=== PATIENT | male | born 1955 | race Asian ===

== ENCOUNTER 2020-05-17 18:03 | Emergency (ER) | payer MEDICARE, OTHER ==
[~2020-05-17] VITALS: Ht 172.7 cm; Wt 81.6 kg
[2020-05-17] MEDS ORDERED: Cefepime HCl 1 GM in D5W 55 ML IVPB ONE (18:30)
[2020-05-17] MEDS ORDERED: Acetaminophen 650 MG SUPP RECTAL ONE (18:30)
[2020-05-17 18:36] LABS: BASOPHILS % (AUTO) 1.4 % (0.0-2.0); HEMATOCRIT 42.3 % (42.0-52.0); HEMOGLOBIN 13.5 G/DL (14.2-18.0); LYMPHOCYTES % (AUTO) 6.3 % (20.0-45.0); MEAN CORPUSCULAR VOLUME 101 FL (80-99); MONOCYTES % (AUTO) 10.2 % (1.0-10.0); NEUTROPHILS % (AUTO) 76.1 % (45.0-75.0); PLATELET COUNT 124 K/UL (150-450); RED BLOOD COUNT 4.17 M/UL (4.70-6.10); WHITE BLOOD COUNT 13.4 K/UL (4.8-10.8)
[2020-05-17 18:45] VITALS: BP 117/51
[2020-05-17 18:48] LABS: INR 1.1 (0.9-1.1)
[2020-05-17] MEDS ORDERED: MULTIVITAMINS1 EAC8 ORAL (18:56)
[2020-05-17] MEDS ORDERED: MAGNESIUM OXID240 MG PO (18:56)
[2020-05-17] MEDS ORDERED: DIGITEK125 MCG PO (18:56)
[2020-05-17] MEDS ORDERED: CRESTOR10 M2 ORAL (18:56)
[2020-05-17] MEDS ORDERED: HYDROCORTISONE20 MG PO (18:56)
[2020-05-17] MEDS ORDERED: VITAMIN C500 M1 ORAL (18:56)
[2020-05-17] MEDS ORDERED: HEPARIN SO5000 UNIT2 SUBQ (18:56)
[2020-05-17] MEDS ORDERED: SYNTHROID25 MCG ORAL (18:56)
[2020-05-17] MEDS ORDERED: POTASSIUM CHLO20 ME1 ORAL (18:56)
[2020-05-17] MEDS ORDERED: ALLOPURINOL100 M1 ORAL (18:56)
[2020-05-17] MEDS ORDERED: ASPIRIN300 MG PO (18:56)
[2020-05-17] MEDS ORDERED: DOCUSATE SODIU100 MG ORAL (18:56)
[2020-05-17] MEDS ORDERED: FLUDROCORTISON0.1 MG PO (18:56)
[2020-05-17] MEDS ORDERED: MIDODRINE HCL10 MG ORAL (18:56)
[2020-05-17] MEDS ORDERED: METOPROLOL SUCC25 MG ORAL (18:56)
[2020-05-17] MEDS ORDERED: VITAMIN D325 MC1 PO (18:56)
[2020-05-17] MEDS ORDERED: ALBUTEROL SULF8.5 G1 INH (18:56)
--- NOTE | 2020-05-17 18:56 | Diagnostic Imaging Report ---
EXAM: XR Chest, 1 View CLINICAL HISTORY: ALOC TECHNIQUE: Frontal view of the chest. COMPARISON: No relevant prior studies available. FINDINGS: Lungs: Low lung volumes with bronchovascular crowding. Linear interstitial prominence could represent interstitial pulmonary edema, atypical infection, or could be due to low lung volumes. Pleural space: Possible tiny left pleural effusion. No pneumothorax. Heart: Cardiomegaly. Mediastinum: Unremarkable. Bones/joints: No acute abnormality Soft tissues: Left axillary surgical clips. IMPRESSION: 1. Low lung volumes with bronchovascular crowding. 2. Linear interstitial prominence could represent interstitial pulmonary edema, atypical infection, or could be due to low lung volumes. 3. Cardiomegaly. 4. Possible tiny left pleural effusion. 5. Left axillary surgical clips. 6. If there is further concern, recommend CT.
[2020-05-17 18:58] LABS: ANION GAP 8 mmol/L (5-15); BLOOD UREA NITROGEN 27 mg/dL (7-18); CARBON DIOXIDE 26 MMOL/L (21-32); CHLORIDE 103 MMOL/L (98-107); CREATININE 1.7 MG/DL (0.55-1.30); POTASSIUM 4.4 MMOL/L (3.5-5.1); SODIUM 137 MMOL/L (136-145)
--- NOTE | 2020-05-17 18:58 | Emergency Room Report ---
History of Present Illness General Chief Complaint: Altered Mental Status Source: Patient, Medical Record, EMS Present Illness HPI Patient brought in by EMS. Apparently has been altered this afternoon. Patient does complain about mild cough but he says that that is chronic. He also complains about total body pain at this time. He states this is his usual although he usually takes [place] [facility]. He denies nausea, vomiting or diarrhea. He states he does not have any dysuria at this time. Patient is a fairly poor historian. Patient is status post stroke. Review of medical records reveals suggesting off hemodialysis in the past. 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 There is also history of asthma and respiratory failure. In addition the patient has had atrial fibrillation and congestive heart failure with pleural effusions. History of gout. 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 Patient History Limited by: medical condition Past Medical History: see triage record, old chart reviewed - papers with patient Social History: Denies: smoking Social History Narrative prison facility Reviewed Nursing Documentation: PMH: Agreed; PSxH: Agreed Nursing Documentation-PMH Past Medical History: No History, Except For Hx Cardiac Problems: Yes - chf, cardiomyopathy, hepatic failure, pleural effusion, a fib, Review of Systems All Other Systems: limited Physical Exam Vital Signs Date Time Temp Pulse Resp B/P (MAP) Pulse Ox O2 Delivery O2 Flow Rate FiO2 05/17/20 18:05 101.5 68 19 112/48 (69) 99 Room Air Sp02 EP Interpretation: reviewed, normal General Appearance: no apparent distress, Chronically Ill Head: normocephalic, atraumatic Eyes: bilateral eye normal inspection, bilateral eye PERRL, bilateral eye EOMI ENT: moist mucus membranes Neck: full range of motion, supple Respiratory: decreased breath sounds Cardiovascular #1: regular rate, rhythm, edema - Trace bilaterally Cardiovascular #2: 2+ radial (L) Gastrointestinal: non tender, soft, decreased bowel sounds Genitourinary: normal inspection Musculoskeletal: back normal, other - Contractures left hand 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, 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 III-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 nml as tested, sensory intact, motor weakness - Left-sided, other - Slow speaking Psychiatric: depressed affect Skin: Decubitus/Ulcer - sacral Stage 2, warm/dry Medical Decision Making Diagnostic Impression: Primary Impression: Sepsis Qualified Codes: A41.9 - Sepsis, unspecified organism; R65.20 - Severe sepsis without septic shock; G93.40 - Encephalopathy, unspecified Additional Impressions: Pneumonia Qualified Codes: J18.9 - Pneumonia, unspecified organism COVID-19 UTI (urinary tract infection) Qualified Codes: N39.0 - Urinary tract infection, site not specified Renal insufficiency ER Course Patient presents with altered level of consciousness and febrile. Differential includes pneumonia, sepsis, Covid, acute myocardial infarction amongst others. High suspicion of sepsis and initial fluid bolus ordered. With a cough pneumonia highly suspected. Patient placed on a nuclear monitoring technician. Tylenol administered also. The patient is a poor historian with a very complicated past medical history and extremely complex. There is no evidence of current hemodialysis. Called with elevated lactate. Bolus and antibiotics already ordered. VS stable. Patient mentating better and answering questions. Sepsis re-evaluation 1906 EKG without injury. Chest x-ray bilateral infiltrates and cardiomegaly. Labs with elevated white count. CMP with renal insufficiency and slightly elevated blood glucose. Urinalysis with too numerous to count white cells. Called COVID +. Dexamethasone added. Repeat Lactate normal. Discussed with Dr. Freeman who feels the patient is stable for transfer as I do. Patient mentation has improved. Laboratory Tests Test 05/17/20 18:15 05/17/20 18:52 05/17/20 19:15 White Blood Count 13.4 K/UL (4.8-10.8) H Red Blood Count 4.17 M/UL (4.70-6.10) L Hemoglobin 13.5 G/DL (14.2-18.0) L Hematocrit 42.3 % (42.0-52.0) Mean Corpuscular Volume 101 FL (80-99) H Mean Corpuscular Hemoglobin 32.4 PG (27.0-31.0) H Mean Corpuscular Hemoglobin Concent 32.0 G/DL (32.0-36.0) Red Cell Distribution Width 15.0 % (11.6-14.8) H Platelet Count 124 K/UL (150-450) L Mean Platelet Volume 10.8 FL (6.5-10.1) H Neutrophils (%) (Auto) 76.1 % (45.0-75.0) H Lymphocytes (%) (Auto) 6.3 % (20.0-45.0) L Monocytes (%) (Auto) 10.2 % (1.0-10.0) H Eosinophils (%) (Auto) 6.0 % (0.0-3.0) H Basophils (%) (Auto) 1.4 % (0.0-2.0) Prothrombin Time 12.0 SEC (9.30-11.50) H Prothrombin Time INR 1.1 (0.9-1.1) Activated Partial Thromboplast Time 34 SEC (23-33) H Sodium Level 137 MMOL/L (136-145) Potassium Level 4.4 MMOL/L (3.5-5.1) Chloride Level 103 MMOL/L (98-107) Carbon Dioxide Level 26 MMOL/L (21-32) Anion Gap 8 mmol/L (5-15) Blood Urea Nitrogen 27 mg/dL (7-18) H Creatinine 1.7 MG/DL (0.55-1.30) H Estimated Glomerular Filtration Rate 41.0 mL/min (>60) Glucose Level 169 MG/DL (74-106) H Lactic Acid Level 2.60 mmol/L (0.4-2.0) H 1.60 mmol/L (0.66-2.22) Calcium Level 9.0 MG/DL (8.5-10.1) Magnesium Level 1.9 MG/DL (1.8-2.4) Ferritin 150 NG/ML (8-388) Total Bilirubin 1.0 MG/DL (0.2-1.0) Aspartate Amino Transferase (AST) 30 U/L (15-37) Alanine Aminotransferase (ALT) 20 U/L (12-78) Alkaline Phosphatase 153 U/L (46-116) H Lactate Dehydrogenase 207 U/L (81-234) Total Creatine Kinase 153 U/L (26-308) Troponin I 0.023 ng/mL (0.000-0.056) C-Reactive Protein, Quantitative 17.9 mg/dL (0.00-0.90) H Pro-B-Type Natriuretic Peptide 8788 pg/mL (0-125) H Total Protein 7.1 G/DL (6.4-8.2) Albumin 2.7 G/DL (3.4-5.0) L Globulin 4.4 g/dL Albumin/Globulin Ratio 0.6 (1.0-2.7) L Lipase 56 U/L (73-393) L Urine Color Yellow Urine Appearance Very cloudy Urine pH 5 (4.5-8.0) Urine Specific Anna 1.010 (1.005-1.035) Urine Protein 3+ (NEGATIVE) H Urine Glucose (UA) Negative (NEGATIVE) Urine Ketones Negative (NEGATIVE) Urine Blood 5+ (NEGATIVE) H Urine Nitrite Negative (NEGATIVE) Urine Bilirubin Negative (NEGATIVE) Urine Urobilinogen Normal MG/DL (0.0-1.0) Urine Leukocyte Esterase 3+ (NEGATIVE) H Urine RBC Tntc /HPF (0 - 0) H Urine WBC Tntc /HPF (0 - 0) H Urine Squamous Epithelial Cells Occasional /LPF Urine Bacteria Moderate /HPF (NONE) H Microbiology Date/Time Source Procedure Growth Status 05/17/20 18:38 Nasopharynx SARS-CoV-2 RdRp Gene Assay - Final Complete EKG Diagnostic Results Rate: normal Rhythm: NSR ST Segments: no acute changes - Left axis deviation Rhythm Strip Diag. Results EP Interpretation: yes Rhythm: NSR, no PVC's, no ectopy Chest X-Ray Diagnostic Results Chest X-Ray Diagnostic Results : Chest X-Ray Ordered: Yes # of Views/Limited/Complete: 1 View Indication: Other EP Interpretation: Yes Interpretation: no effusion, no pneumothorax, other - inc cor and inc olivera Impression: Other Electronically Signed by: Electronically signed by Taj Saunders MD Last Vital Signs Date Time Temp Pulse Resp B/P (MAP) Pulse Ox O2 Delivery O2 Flow Rate FiO2 05/17/20 22:20 100.1 56 25 105/61 95 Nasal Cannula 2.0 98 Status: improved Disposition: SHORT-TERM HOSP Condition: Serious Taj Saunders MD May 17, 2020 18:58
[2020-05-17 19:10] VITALS: BP 114/56
[2020-05-17] MEDS ORDERED: oxyCODONE HCL/Acetaminophen 5/325mg ORAL ONE (19:15)
[2020-05-17 19:16] LABS: ALANINE AMINOTRANSFERASE 20 U/L (12-78); ALBUMIN 2.7 G/DL (3.4-5.0); ALBUMIN/GLOBULIN RATIO 0.6 (1.0-2.7); ALKALINE PHOSPHATASE 153 U/L (46-116); ASPARTATE AMINO TRANSFERASE 30 U/L (15-37); CREATINE KINASE 153 U/L (26-308); FERRITIN 150 NG/ML (8-388); LACTATE DEHYDROGENASE 207 U/L (81-234)
[2020-05-17 19:52] LABS: APPEARANCE,URINE VERY CLOUDY; BILIRUBIN, URINE NEGATIVE (NEGATIVE); GLUCOSE, URINE (UA) NEGATIVE (NEGATIVE); KETONES,URINE NEGATIVE (NEGATIVE); LEUKOCYTE ESTERASE ,URINE 3+ (NEGATIVE); NITRITE,URINE NEGATIVE (NEGATIVE); PH,URINE 5 (4.5-8.0); PROTEIN,URINE 3+ (NEGATIVE); UROBILINOGEN,URINE NORMAL MG/DL (0.0-1.0)
[2020-05-17 19:56] LABS: COLOR,URINE YELLOW
[2020-05-17] MEDS ORDERED: dexAMETHasone 10mg/ml Inj IV ONE (20:30)
[2020-05-17 21:15] VITALS: BP 110/67
[2020-05-17 22:20] VITALS: BP 105/61
--- NOTE | 2020-05-18 19:57 | Cardiology Report ---
APPROVED REPORT EKG Measurement Heart [id number] <Conclusion> Atrial fibrillation with occasional premature ventricular complexes Left axis deviation Right bundle branch block T wave abnormality, consider lateral ischemia Abnormal ECG
== END 2020-05-17 22:20 | disposition short-term general hospital (02) ==
LOC: EDBD 18:03 → EMR 19:07
DX: A41.89 Other specified sepsis (principal); U07.1 COVID-19; R65.20 Severe sepsis without septic shock; N39.0 Urinary tract infection, site not specified; N28.9 Disorder of kidney and ureter, unspecified; J12.89 Other viral pneumonia; I50.9 Heart failure, unspecified; I42.9 Cardiomyopathy, unspecified; I45.10 Unspecified right bundle-branch block; I48.91 Unspecified atrial fibrillation
CPT/HCPCS: 36415; 71045; 80053; 81003; 82550; 82728; 83605; 83615; 83690; 83735; 83880; 84484; 85025; 85379; 85610; 85730; 86140; 87040; 87086; 87181; 93005; 96361; 96365; 96375; 99285; J0692; J7030; U0002